=== PATIENT | male | born 1950 | race Caucasian/White ===

== ENCOUNTER 2019-11-15 22:09 | Emergency (ER) | payer MEDICARE, MEDICAID ==
[~2019-11-15] VITALS: Ht 180.3 cm; Wt 87.1 kg
[2019-11-16] MEDS ORDERED: NAPROXEN 250 MG TAB PO ONE (00:30)
[2019-11-16] MEDS ORDERED: diazePAM 10 MG TAB PO ONE (00:30)
[2019-11-16 00:49] VITALS: BP 168/88
[2019-11-16] MEDS ORDERED: ROBA750T4 PO (09:47)
[2019-11-16] MEDS ORDERED: NAPR-837 PO (09:47)
== END 2019-11-16 00:50 | disposition home or self-care (01) ==
LOC: M ED 22:09
DX: S16.1XXA Strain of muscle, fascia and tendon at neck level, initial encounter (principal); M54.6 Pain in thoracic spine; X50.1XXA Overexertion from prolonged static or awkward postures, initial encounter; Y92.9 Unspecified place or not applicable; Y92.89 Other specified places as the place of occurrence of the external cause; Y99.9 Unspecified external cause status; Z88.0 Allergy status to penicillin